=== PATIENT | male | born 1945 | race African-American/Black ===

== ENCOUNTER 2018-02-25 20:46 | Emergency (ER) | payer OTHER ==
--- NOTE | 2018-02-25 21:04 | EDPHY ---
H & P Stated Complaint: LEFT REAR RIB PAIN ALL DAY, DENIES TRAUMA WORSE WITH DEEP BREATH Time Seen by Provider: 02/25/18 21:04 HPI/ROS: CHIEF COMPLAINT: Left posterior chest pain HISTORY OF PRESENT ILLNESS: The patient presents the ED with complaints of left posterior chest pain. The patient reports his pain is worsened with palpation, inspiration and movement. The patient denies any asymmetric calf pain or swelling. He denies prior history of PE or DVT. He denies any recent travel. The patient denies fever, cough or congestion. 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 He is not anticoagulated. The patient denies any rash. He denies any additional acute complaints. REVIEW OF SYSTEMS: A comprehensive 10 point review of systems is otherwise negative aside from elements mentioned in the history of present illness. Source: Patient - Personal History Current Tetanus/Diphtheria Vaccine: Yes Current Tetanus Diphtheria and Acellular Pertussis (TDAP): Yes - Medical/Surgical History Hx Asthma: No Hx Chronic Respiratory Disease: No Hx Diabetes: No Hx Cardiac Disease: Yes Hx Renal Disease: No Hx Cirrhosis: No Hx Alcoholism: No Hx HIV/AIDS: No Hx Splenectomy or Spleen Trauma: No Other PMH: PPM, kidney stones, HTN - Social History Smoking Status: Never smoked - Physical Exam Exam: General Appearance: Alert, no distress Head: Atraumatic Eyes: Pupils equal, round, reactive ENT, Mouth: No hemotympanum, no oral trauma Neck: Nontender, trachea midline Respiratory: Tenderness to palpation in the left posterior chest wall, no subcutaneous emphysema Cardiovascular: Regular rate and rhythm Abdomen: Abdomen is soft and nontender, pelvis stable Skin: No lacerations, No abrasion Back: No midline T/L/S pain Extremities: Nontender, full range of motion Neurological: A&Ox3, normal motor function, normal sensory exam Constitutional: Initial Vital Signs Temperature (C) 37.0 C 02/25/18 20:52 Heart Rate 58 L 02/25/18 20:52 Respiratory Rate 18 02/25/18 20:52 Blood Pressure 186/92 H 02/25/18 20:52 O2 Sat (%) 96 02/25/18 20:52 O2 Delivery Mode Room Air Allergies/Adverse Reactions: No Known Allergies Allergy (Unverified 02/25/18 20:54) Home Medications: Medication Instructions Recorded Lidocaine [Lidoderm] 1 each TP AD PRN #15 adh..patch 10/28/18 Rosuvastatin Calcium [Crestor 40mg 40 mg PO DAILY 02/25/18 (*)] amLODIPine BESYLATE [Amlodipine 5 mg PO 02/25/18 Besylate] Medical Decision Making - Diagnostics EKG Interpretation: EKG: Complete interpretation has been separately recorded in the [facility] archive. Summary impression: Sinus rhythm, rate 58, nonspecific ST T wave changes are noted Imaging Results: Imaging Impressions Chest/Thorax CTA 02/25/18 21:23 Impression: 1. Negative CT examination of the chest for acute pulmonary thromboembolic disease. 2. Coronary atherosclerosis. 3. Pacemaker. Results called to Dr. Zhang Hernandez at 10:00 PM at the time of the interpretation. ED Course/Re-evaluation: The patient presents to the ED with sharp posterior chest pain which is reproducible and pleuritic. The patient denies any exertional chest pain or shortness of breath. Patient does have a history of a pacemaker. The patient denies fever, cough or congestion. There is no evidence of zoster noted on exam. The patient was taken for a CT angiogram of the chest which demonstrates no evidence of a rib fracture, pulmonary embolism or aortic dissection. The patient's EKG demonstrates no evidence of acute ischemia nor are his symptoms suggestive of ACS. The patient was given a 15 mg injection of Toradol in the emergency department. Patient is also given a lidocaine patch. I re-evaluated the patient at 10:30 p.m. I am confident this is musculoskeletal pain. He will be discharged home with instructions to use NSAIDs. He is also given a prescription for lidocaine patch. Differential Diagnosis: Differential diagnosis considered includes pulmonary embolism, aortic dissection , rib fracture, pneumothorax, pneumonia - Data Points Laboratory Results: Laboratory Results 02/25/18 21:12 02/25/18 02/25/18 02/25/18 22:07 21:16 21:12 WBC 8.05 10^3/uL 10^3/uL (3.80-9.50) RBC 4.72 10^6/uL 10^6/uL (4.40-6.38) Hgb 15.8 g/dL g/dL (13.7-17.5) POC Hgb 16.3 gm/dL gm/dL (13.7-17.5) Hct 46.6 % % (40.0-51.0) POC Hct 48 % % (40-51) MCV 98.7 fL fL (81.5-99.8) MCH 33.5 pg pg (27.9-34.1) MCHC 33.9 g/dL g/dL (32.4-36.7) RDW 11.4 % L % (11.5-15.2) Plt Count 261 10^3/uL 10^3/uL (150-400) MPV 8.3 fL L fL (8.7-11.7) Neut % (Auto) 60.8 % % (39.3-74.2) Lymph % (Auto) 28.4 % % (15.0-45.0) [place] % (Auto) 8.6 % % (4.5-13.0) Eos % (Auto) 1.4 % % (0.6-7.6) Baso % (Auto) 0.7 % % (0.3-1.7) Nucleat RBC Rel Count 0.0 % % (0.0-0.2) Absolute Neuts (auto) 4.89 10^3/uL 10^3/uL (1.70-6.50) Absolute Lymphs (auto) 2.29 10^3/uL 10^3/uL (1.00-3.00) Absolute Monos (auto) 0.69 10^3/uL 10^3/uL (0.30-0.80) Absolute Eos (auto) 0.11 10^3/uL 10^3/uL (0.03-0.40) Absolute Basos (auto) 0.06 10^3/uL 10^3/uL (0.02-0.10) Absolute Nucleated RBC 0.00 10^3/uL 10^3/uL (0-0.01) Immature Gran % 0.1 % % (0.0-1.1) Immature Gran # 0.01 10^3/uL 10^3/uL (0.00-0.10) POC Sodium 142 mEq/L mEq/L (135-145) POC Potassium 4.1 mEq/L mEq/L (3.3-5.0) POC Chloride 104 mEq/L mEq/L (97-110) POC BUN 18 mg/dL mg/dL (7-23) POC Creatinine 1.1 mg/dL mg/dL (0.7-1.3) POC Glucose 83 mg/dL mg/dL (70-100) POC Troponin I 0.00 ng/mL ng/mL (0.00-0.08) Medications Given: Discontinued Medications Ketorolac Tromethamine (Toradol) 15 mg IVP EDNOW ONE Stop: 02/25/18 22:05 Last Admin: 02/25/18 22:14 Dose: 15 mg Point of Care Test Results: Chemistry 02/25/18 02/25/18 22:07 21:16 POC Sodium 142 mEq/L mEq/L (135-145) POC Potassium 4.1 mEq/L mEq/L (3.3-5.0) POC Chloride 104 mEq/L mEq/L (97-110) POC BUN 18 mg/dL mg/dL (7-23) POC Creatinine 1.1 mg/dL mg/dL (0.7-1.3) POC Glucose 83 mg/dL mg/dL (70-100) POC Troponin I 0.00 ng/mL ng/mL (0.00-0.08) ISTAT H&H 02/25/18 21:16 POC Hgb 16.3 gm/dL gm/dL (13.7-17.5) POC Hct 48 % % (40-51) Departure - Departure Disposition: Home, Routine, Self-Care Clinical Impression: Thoracic back pain Qualifiers: Chronicity: acute Back pain laterality: left Qualified Code(s): M54.6 - Pain in thoracic spine Condition: Good Instructions: Thoracic Pain (ED) Additional Instructions: 1. The testing in the emergency today demonstrates no obvious explanation for your pain. I do believe that is likely musculoskeletal in nature. 2. Take Ibuprofen or Motrin 600 mg by mouth three times a day. 3. Please return to the ED for markedly worsening symptoms or other concerns. 4. Lidocaine patch as prescribed. Referrals: Nelsy Foss MD [Primary Care Provider] - As per Instructions
[2018-02-25] MEDS ORDERED: IOPAMIDOL (ISOVUE 370) 100 ML BTL IV ONE (21:27)
[2018-02-25 21:55] LABS: PLATELET COUNT 261 10^3/uL (150-400)
[2018-02-25] MEDS ORDERED: KETOROLAC 15 MG/1 ML SDV IVP ONE (22:04)
[2018-02-25] MEDS ORDERED: LIDOCAINE 4%/MENTHOL 1% PATCH TD ONE (22:22)
[2018-02-25 22:41] VITALS: BP 170/87
[2018-02-26] MEDS ORDERED: PATCH REMOVAL 1 EA PATCH TD SCH (21:00)
== END 2018-02-25 22:42 | disposition home or self-care (01) ==
DX: M54.6 Pain in thoracic spine (principal); I10 Essential (primary) hypertension
CPT/HCPCS: 71275; 96374; 99285; J1885; Q9967; 82435-PO; 82565-PO; 82947-PO; 84132-PO; 84295-PO; 84484-PO; 84520-PO; 85014-PO